=== PATIENT | male | born 1945 | race Caucasian/White ===

== ENCOUNTER 2016-12-30 15:02 | Inpatient (IN) | payer OTHER ==
[~2016-12-30] VITALS: Ht 177.8 cm; Wt 81.0 kg
[~2016-12-30 15:02] MED LIST: ALLOPURINOL100 MG PO; ASPIR 8181 M1 PO; COUMADIN5 MG PO; FLONASE16 G1 BOTH NARES; GEMFIBROZIL600 MG PO; LOVENOX80 MG/0.8 SC; METOPROLOL TART25 MG PO; NAPROSYN500 MG PO; NORCO 5/3251 TABLET PO; PRAVASTATIN SOD40 MG PO
[2016-12-30 15:49] LABS: HEMATOCRIT 35.2 % (38.0-50.0); MCH 30.8 PG (29.0-34.0); MCHC 33.5 G/DL (30.0-36.0); MCV 91.9 FL (86-99); MEAN PLAT.VOLUME 9.7 uM^3 (9.0-12.4); PLATELET COUNT 481 K/uL (156-360); RBC DIS.WIDTH-CV 13.9 % (11.8-14.6); RBC DIS.WIDTH-SD 45.7 % (39-53); RED BLOOD COUNT 3.83 M/uL (4.00-5.50); WHITE BLOOD COUNT 19.3 K/uL (4.1-10.2)
[2016-12-30 15:53] LABS: CHLORIDE 103 mEq/L (99-109); EOSINOPHIL COUNT 0.2 K/uL (0-0.3); LYMPHOCYTE COUNT 1.5 K/uL (1.0-2.8); MONOCYTE (%) 5.3 % (3-12); NEUTROPHIL COUNT 16.4 K/uL (1.8-6.4); POTASSIUM 3.8 mEq/L (3.7-5.4); SODIUM 139 mEq/L (136-147)
[2016-12-30 15:55] LABS: GLUCOSE 120 mg/dL (70-99)
[2016-12-30 15:57] LABS: ANION GAP 12 MEQ/L (2-14)
[2016-12-30 15:59] LABS: GFR ESTIMATE (CALCULATED) > 59 mL/min/
[2016-12-30 16:00] LABS: UREA NITROGEN (BUN) 19 mg/dL (9-23)
[2016-12-30 16:07] LABS: TROP-I INTERPRETATION NEGATIVE; TROPONIN-I < 0.01 ng/mL (0.0-0.30)
[2016-12-30] MEDS ORDERED: NIFEDIPINE ER30 MG PO (17:36)
[2016-12-30] MEDS ORDERED: INDOMETHACIN50 MG PO (17:36)
[2016-12-30] MEDS ORDERED: CENTRUM SILVER1 EAC3 PO (17:36)
[2016-12-30] MEDS ORDERED: ALLOPURINOL300 MG PO (17:36)
[2016-12-30 21:14] VITALS: BP 134/71
[2016-12-31] VITALS (7 sets, daily range): BP systolic 114–150; BP diastolic 64–69
[2016-12-31 06:37] LABS: EOSINOPHIL (%) 2.3 % (0-5); EOSINOPHIL COUNT 0.3 K/uL (0-0.3); HEMATOCRIT 30.9 % (38.0-50.0); IMMATURE GRANULOCYTE COUNT 0.1 K/uL; MCH 31.8 PG (29.0-34.0); MCHC 34.3 G/DL (30.0-36.0); MCV 92.8 FL (86-99); MEAN PLAT.VOLUME 10.1 uM^3 (9.0-12.4); MONOCYTE (%) 6.1 % (3-12); MONOCYTE COUNT 0.9 K/uL (0-0.8); NEUTROPHIL (%) 76.7 % (45-76); NEUTROPHIL COUNT 11.3 K/uL (1.8-6.4); PLATELET COUNT 426 K/uL (156-360); RBC DIS.WIDTH-CV 14.1 % (11.8-14.6); RBC DIS.WIDTH-SD 47.8 % (39-53); RED BLOOD COUNT 3.33 M/uL (4.00-5.50); WHITE BLOOD COUNT 14.7 K/uL (4.1-10.2)
[2016-12-31 07:05] LABS: ANION GAP 9 MEQ/L (2-14); CHLORIDE 103 MEQ/L (99-109); GFR ESTIMATE (CALCULATED) > 59 mL/min/; GLUCOSE 99 mg/dL (70-99); SAMPLE HEMOLYSIS CHECK 0; SAMPLE ICTERIC CHECK 0; SAMPLE LIPEMIA CHECK 0; SODIUM 139 MEQ/L (136-147); UREA NITROGEN (BUN) 15 mg/dL (9-23)
[2016-12-31 07:06] LABS: INTERNAL CONTROL VALID? YES
[2016-12-31 07:44] LABS: INFLUENZA A VIRAL ANTIGEN POSITIVE; INFLUENZA B VIRAL ANTIGEN NEGATIVE
[2016-12-31 22:20] LABS: POINT-OF-CARE METER ID UU14188625
[2017-01-01 04:53] VITALS: BP 135/67
[2017-01-01 07:05] LABS: HEMATOCRIT 32.2 % (38.0-50.0); MCH 33.3 PG (29.0-34.0); MCHC 35.1 G/DL (30.0-36.0); PLATELET COUNT 439 K/uL (156-360); RBC DIS.WIDTH-CV 14.3 % (11.8-14.6); RBC DIS.WIDTH-SD 49.3 % (39-53); RED BLOOD COUNT 3.39 M/uL (4.00-5.50); WHITE BLOOD COUNT 13.5 K/uL (4.1-10.2)
[2017-01-01 07:28] LABS: ANION GAP 10 MEQ/L (2-14); CHLORIDE 105 MEQ/L (99-109); GFR ESTIMATE (CALCULATED) > 59 mL/min/; GLUCOSE 103 mg/dL (70-99); POTASSIUM 4.2 MEQ/L (3.7-5.4); SAMPLE HEMOLYSIS CHECK 0; SAMPLE ICTERIC CHECK 0; SAMPLE LIPEMIA CHECK 0; SODIUM 141 MEQ/L (136-147); UREA NITROGEN (BUN) 10 mg/dL (9-23)
[2017-01-01 08:27] VITALS: BP 129/69
[2017-01-01 12:33] VITALS: BP 122/68
[2017-01-01 17:11] VITALS: BP 107/58
[2017-01-01 19:50] VITALS: BP 158/78
[2017-01-01 20:02] LABS: C DIFF TOXIN NEGATIVE (NEGATIVE)
[2017-01-01 20:03] LABS: PROBE CHECK PASS; SPECIMEN PROCESSING CONTROL PASS
[2017-01-02 00:13] VITALS: BP 152/73
[2017-01-02 04:43] VITALS: BP 136/61
[2017-01-02 07:53] VITALS: BP 131/61
[2017-01-02 08:44] LABS: EOSINOPHIL (%) 3.9 % (0-5); EOSINOPHIL COUNT 0.4 K/uL (0-0.3); HEMATOCRIT 32.9 % (38.0-50.0); IMMATURE GRANULOCYTE (%) 0.7 % (0.0-0.7); IMMATURE GRANULOCYTE COUNT 0.1 K/uL; LYMPHOCYTE COUNT 2.3 K/uL (1.0-2.8); MCH 29.9 PG (29.0-34.0); MCHC 31.3 G/DL (30.0-36.0); MCV 95.4 FL (86-99); MEAN PLAT.VOLUME 9.9 uM^3 (9.0-12.4); MONOCYTE COUNT 0.7 K/uL (0-0.8); NEUTROPHIL (%) 68.1 % (45-76); NEUTROPHIL COUNT 7.6 K/uL (1.8-6.4); PLATELET COUNT 491 K/uL (156-360); RBC DIS.WIDTH-CV 14.5 % (11.8-14.6); RBC DIS.WIDTH-SD 50.6 % (39-53); RED BLOOD COUNT 3.45 M/uL (4.00-5.50); WHITE BLOOD COUNT 11.1 K/uL (4.1-10.2)
[2017-01-02 08:59] LABS: ANION GAP 6 MEQ/L (2-14); CHLORIDE 105 MEQ/L (99-109); GFR ESTIMATE (CALCULATED) > 59 mL/min/; GLUCOSE 99 mg/dL (70-99); POTASSIUM 4.2 MEQ/L (3.7-5.4); SAMPLE HEMOLYSIS CHECK 0; SAMPLE ICTERIC CHECK 0; SAMPLE LIPEMIA CHECK 0; SODIUM 139 MEQ/L (136-147); UREA NITROGEN (BUN) 8 mg/dL (9-23)
[2017-01-02 11:11] VITALS: BP 127/64
[2017-01-02 14:57] VITALS: BP 108/61
[2017-01-02 20:00] VITALS: BP 156/68; BP 156/74
[2017-01-03] VITALS: BP 149/88
[2017-01-03 04:04] VITALS: BP 129/86
[2017-01-03 07:27] LABS: EOSINOPHIL (%) 3.6 % (0-5); EOSINOPHIL COUNT 0.4 K/uL (0-0.3); HEMATOCRIT 33.8 % (38.0-50.0); IMMATURE GRANULOCYTE (%) 0.8 % (0.0-0.7); IMMATURE GRANULOCYTE COUNT 0.1 K/uL; LYMPHOCYTE COUNT 2.1 K/uL (1.0-2.8); MCH 29.7 PG (29.0-34.0); MCHC 31.4 G/DL (30.0-36.0); MCV 94.7 FL (86-99); MEAN PLAT.VOLUME 10.1 uM^3 (9.0-12.4); MONOCYTE (%) 6.7 % (3-12); MONOCYTE COUNT 0.7 K/uL (0-0.8); NEUTROPHIL (%) 68.7 % (45-76); NEUTROPHIL COUNT 7.2 K/uL (1.8-6.4); PLATELET COUNT 517 K/uL (156-360); RBC DIS.WIDTH-CV 14.3 % (11.8-14.6); RBC DIS.WIDTH-SD 49.2 % (39-53); RED BLOOD COUNT 3.57 M/uL (4.00-5.50); WHITE BLOOD COUNT 10.4 K/uL (4.1-10.2)
[2017-01-03 07:42] LABS: ANION GAP 9 MEQ/L (2-14); CHLORIDE 104 MEQ/L (99-109); GFR ESTIMATE (CALCULATED) > 59 mL/min/; GLUCOSE 97 mg/dL (70-99); SAMPLE HEMOLYSIS CHECK 0; SAMPLE ICTERIC CHECK 0; SAMPLE LIPEMIA CHECK 0; SODIUM 140 MEQ/L (136-147); UREA NITROGEN (BUN) 8 mg/dL (9-23)
[2017-01-03 08:49] VITALS: BP 139/72
[2017-01-03 13:23] VITALS: BP 125/69
[2017-01-03 15:25] VITALS: BP 125/69
[2017-01-03 19:50] VITALS: BP 137/75
[2017-01-04] VITALS (7 sets, daily range): BP systolic 121–147; BP diastolic 63–79
[2017-01-04 06:45] LABS: EOSINOPHIL (%) 5.1 % (0-5); EOSINOPHIL COUNT 0.5 K/uL (0-0.3); HEMATOCRIT 33.1 % (38.0-50.0); IMMATURE GRANULOCYTE (%) 0.5 % (0.0-0.7); LYMPHOCYTE COUNT 2.1 K/uL (1.0-2.8); MCHC 31.7 G/DL (30.0-36.0); MCV 94.6 FL (86-99); MEAN PLAT.VOLUME 9.5 uM^3 (9.0-12.4); MONOCYTE (%) 7.2 % (3-12); MONOCYTE COUNT 0.6 K/uL (0-0.8); NEUTROPHIL (%) 63.2 % (45-76); NEUTROPHIL COUNT 5.6 K/uL (1.8-6.4); PLATELET COUNT 484 K/uL (156-360); RBC DIS.WIDTH-CV 14.1 % (11.8-14.6); RBC DIS.WIDTH-SD 48.9 % (39-53); WHITE BLOOD COUNT 8.9 K/uL (4.1-10.2)
[2017-01-05 04:13] VITALS: BP 124/70
[2017-01-05 07:00] LABS: EOSINOPHIL (%) 0 % (0-5); HEMATOCRIT 33.8 % (38.0-50.0); IMMATURE GRANULOCYTE (%) 0.3 % (0.0-0.7); MCH 31.7 PG (29.0-34.0); MCV 93.1 FL (86-99); MEAN PLAT.VOLUME 9.5 uM^3 (9.0-12.4); MONOCYTE (%) 0.2 % (3-12); NEUTROPHIL (%) 88.6 % (45-76); NEUTROPHIL COUNT 7.9 K/uL (1.8-6.4); PLATELET COUNT 524 K/uL (156-360); RBC DIS.WIDTH-CV 13.8 % (11.8-14.6); RBC DIS.WIDTH-SD 46.8 % (39-53); RED BLOOD COUNT 3.63 M/uL (4.00-5.50); WHITE BLOOD COUNT 8.9 K/uL (4.1-10.2)
[2017-01-05 07:25] LABS: ANION GAP 8 MEQ/L (2-14); CHLORIDE 100 MEQ/L (99-109); GFR ESTIMATE (CALCULATED) > 59 mL/min/; POTASSIUM 4.7 MEQ/L (3.7-5.4); SAMPLE HEMOLYSIS CHECK 0; SAMPLE ICTERIC CHECK 0; SAMPLE LIPEMIA CHECK 0; SODIUM 140 MEQ/L (136-147); UREA NITROGEN (BUN) 14 mg/dL (9-23)
[2017-01-05 07:27] LABS: GLUCOSE 161 mg/dL (70-99)
[2017-01-05 07:52] VITALS: BP 122/67
[2017-01-05 11:09] VITALS: BP 120/68
[2017-01-05 18:30] LABS: BASE EXCESS 3.3 mEq/L (-3 to +3); BICARBONATE 27.8 mEq/L (22-26); CARBOXY HGB 0.8 % (0-5); METHEMOGLOBIN 1.2 % (0-1.5); PCO2 41 mm Hg (35-45); PO2 67 mm Hg (80-100); pH 7.44 (7.35-7.45)
[2017-01-05 18:31] LABS: COMMENTS - BLOOD GASES +C; DEVICE NC; O2 FLOW 4 L/MIN; SITE RR +A; TOTAL RESP RATE 20 resp/min
[2017-01-05 19:13] VITALS: BP 131/61
[2017-01-06 00:12] VITALS: BP 110/59
[2017-01-06 03:44] VITALS: BP 119/64
[2017-01-06 07:26] LABS: ANION GAP 7 MEQ/L (2-14); CHLORIDE 101 MEQ/L (99-109); GFR ESTIMATE (CALCULATED) > 59 mL/min/; GLUCOSE 148 mg/dL (70-99); POTASSIUM 4.6 MEQ/L (3.7-5.4); SAMPLE HEMOLYSIS CHECK 0; SAMPLE ICTERIC CHECK 0; SAMPLE LIPEMIA CHECK 0; SODIUM 139 MEQ/L (136-147)
[2017-01-06 07:33] LABS: UREA NITROGEN (BUN) 22 mg/dL (9-23)
[2017-01-06 07:54] VITALS: BP 117/65
[2017-01-06 11:14] VITALS: BP 118/64
[2017-01-06 13:00] LABS: POINT-OF-CARE USER ID 612031313
[2017-01-06] MEDS ORDERED: PREDNISONE20 MG PO (14:45)
[2017-01-06] MEDS ORDERED: LEVOFLOXACIN750 MG PO (14:45)
[2017-01-06] MEDS ORDERED: VENTOLIN HFA18 GM IH (14:47)
[2017-01-06] MEDS ORDERED: TAMIFLU75 MG PO (14:59)
[2017-01-06 15:28] VITALS: BP 127/67
== END 2017-01-06 17:32 | disposition home or self-care (01) | DRG 190 ==
LOC: EME 15:02 → 5SOUTH 20:10 → EDOF 20:10 → 5SOUTH 20:51
PROVIDERS: Emergency Medicine; Hospitalist; Internal Medicine Pulmonary Disease; Physician Assistant; Student in an Organized Health Care Education/Training Program
DX: J44.0 Chronic obstructive pulmonary disease with (acute) lower respiratory infection (principal); J18.9 Pneumonia, unspecified organism; J10.00 Influenza due to other identified influenza virus with unspecified type of pneumonia; J96.91 Respiratory failure, unspecified with hypoxia; D47.3 Essential (hemorrhagic) thrombocythemia; I10 Essential (primary) hypertension; E78.5 Hyperlipidemia, unspecified; M10.9 Gout, unspecified; D64.9 Anemia, unspecified; Z87.891 Personal history of nicotine dependence; Z86.718 Personal history of other venous thrombosis and embolism
CPT/HCPCS: 36600; 71010; 71020; 71275; 80048; 82803; 82948; 83605; 83880; 84145 90; 84484; 85025; 85027; 85730; 87040; 87070; 87205; 87449; 87493; 87502; 93005; 94010; 94640; 94640 76; 94760; 94799; 99202; 99281; 99285; J0456; J0696; J1815; J1956; J2543; J2930; J7030; J7050; J7512